=== PATIENT | male | born 1955 | race Caucasian/White ===

== ENCOUNTER 2018-12-27 06:45 | Day surgery (SDC) | payer BC, SELFPAY ==
[2018-12-27] VITALS (7 sets, daily range): BP systolic 130–160; BP diastolic 79–94; PULSE 63–78; RESP 12–16; TEMP 36.4–36.6; O2SAT 94–98
[2018-12-27] MEDS: Lactated Ringers 1,000 ML 80 ML IV (07:05)
--- NOTE | 2018-12-27 07:16 | W.PM.HP.N ---
Date of service: 12/27/18 Time of Service: 07:16 Assessment and Plan (1) Left inguinal hernia: Current visit: No Status: Acute A\\ left inguinal hernia P\\ Left inguinal hernia repair with mesh Risks, benefits and complications have been reviewed. Complications include but are not limited to bleeding, infection, injury to vas, vessels and nerves, injury to bowel and adverse reaction to medications. Questions were entertained and answered to their satisfaction and they wished to proceed. History of Present Illness Narrative: Mr. Jackson is a pleasant 63 year old male who is here today because he has a left inguinal hernia that he noticed about 3-4 months ago. He has mild discomfort with activity. 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 He denies any N/V or changes in his bowel habits. He thinks he had a hernia repaired about 5-6 years ago in [place]. Not sure which side. I don't see that in his PMHx. He denies any chest pain or SOB. He is an active ayan. He was given a Rx for a chest rash. The antibiotics are helping to clear it up. No changes in his health since he was seen in the office Review of Systems Constitutional Denies fever(s) Cardiovascular Denies chest pain, Denies chest pain at rest, Denies dyspnea and Denies dyspnea on exertion Respiratory Denies cough, Denies dyspnea and Denies dyspnea on exertion Gastrointestinal Reports as per [facility] Medical History (Updated 12/27/18 @ 07:18 by Ana López MD) Depression (Chronic) Essential hypertension (Acute) Hiatal hernia (Inactive) History of alcoholism (Acute) Hyperlipidemia (Acute) Induratio penis plastica (Inactive) w/ E.D. Internal hemorrhoids (Inactive 10/17/14) Left inguinal hernia (Acute) Umbilical hernia (Acute) Surgical History Appendectomy Colonoscopy - [facility] 1999 2004 Vasectomy Family History Mother Personal history of malignant neoplasm brain Father Essential hypertension Personal history of malignant neoplasm melanoma Sister Essential hypertension Grandfather Diabetes Grandfather Alcohol abuse Neoplasm Grandmother Stroke Grandmother No problems noted. Sister Depression Daughter Asthma Daughter No problems noted. 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 Do you feel safe at home: Yes Do you feel safe in your relationship?: Yes Meds Home Medications Medication Instructions Recorded Confirmed Type albuterol sulfate [Proair Hfa] 2 puff INHALATION Q4H PRN #2 02/01/17 12/22/18 Rx inhaler tadalafil [Cialis] 10 - 20 mg PO DAILY PRN #10 tab-cap 09/01/17 12/27/18 History losartan 100 1 tab PO DAILY #90 tab-cap 03/28/18 12/27/18 Rx mg-hydrochlorothiazide 25 mg tablet amlodipine 5 mg tablet 5 mg PO DAILY #90 tab-cap 07/11/18 12/27/18 Rx atorvastatin 20 mg tablet 20 mg PO DAILY #90 tab-cap 07/11/18 12/27/18 Rx budesonide-formoterol HFA 160 2 puff INHALATION BID #2 inhaler 09/21/18 12/22/18 Rx mcg-4.5 mcg/actuation aerosol inhaler escitalopram oxalate 20 mg tablet 20 mg PO DAILY #90 tab-cap 09/27/18 12/27/18 Rx Allergies Allergy/AdvReac Type Severity Reaction Status Date / Time No Known Drug Allergies Allergy Verified 12/22/18 12:07 Exam Const General: cooperative and comfortable Orientation: alert and oriented x3 HENMT Head: normal to inspection, normocephalic and atraumatic Resp Effort & Inspection: normal respiratory effort Auscultation: clear to auscultation bilaterally Cardio Rate: regular rate Rhythm: regular rhythm Heart Sounds: no gallops, no murmurs and no rubs GI Inspection: normal to inspection Palpation: soft, no hepatosplenomegaly and hernia (left inguinal hernia) Results Last Vital Signs Temp 97.9 F 12/27/18 06:52 Pulse 63 12/27/18 06:52 Resp 16 12/27/18 06:52 BP 160/90 H 12/27/18 06:52 Pulse Ox 98 12/27/18 06:52
--- NOTE | 2018-12-27 07:19 | ROE_ITS ---
Date of service: 12/27/18 Time of Service: 08:52 Operative Note DATE OF PROCEDURE: 12/27/18 PRE-OP DIAGNOSIS: left inguinal hernia POST-OP DIAGNOSIS: same (direct and indirect) PROCEDURE: left inguinal hernia repair with mesh SURGEON: Ana López DIE CASTING MACHINE MAINTAINER: Juli Weber ANESTHESIA: GETA and regional (Left TAP block) ESTIMATED BLOOD LOSS: 10 PATHOLOGY: none sent COMPLICATIONS: None Patient was transported to: PACU Patient's condition: stable Implants: Bard mesh Perfix Plug XL REF [id number] LOT [id number] Indications: Mr. Jackson is a pleasant 63 year old male seen in the office for a bothersome left inguinal hernia. Risks, benefits and complications were reviewed with him and he wished to proceed. No guarantees were given or implied. Findings: Large indirect and direct hernia Cord lipoma Procedure Description: After informed concent was obtained the patient was taken to the operating room and placed in a supine position. Monitors and SCDs were applied and a timeout was done. The patient's name, date of , proc edure type, procedure site, allergies to medications, preoperative antibiotic, and DVT prophylaxis were all reviewed. Fire risk was assessed. Next anesthesia did a tap block on the left side under ultrasound guidance. Please see their separate dictation. Once anesthesia was done the abdomen was clipped of hair in the left lower quadrant, prepped and draped in a sterile surgical fashion. 1% lidocaine was injected into the dermis in the left lower quadrant. An incision was made with a 10 blade in the left lower quadrant. Dissection was done with cautery through the subcutaneous tissues and Su's fascia down to the external oblique fascia. The external ring was identified and the external oblique fascia was opened sharply through the external ring. The cut fascia was grasped with hemostats. The cord structures were identified and a [place] drain was placed around them. The cremasteric muscle was dissected away from the cord structures using both cautery and blunt dissection. The branch of the ilioinguinal nerve was cut. A hernia sac was identified and removed from the cord structures using blunt dissection. The hernia sac was opened. No bowel was identified. The sac was then suture ligated and amputated. The remnant was pushed back into the peritoneum. A XL plug was placed into the internal ring and secured with 2-0 proline. The flat piece of mesh was then attached to the arcuate ligament using a 2-0 Prolene double armed suture. The mesh was secured laterally and medially with a 2-0 Prolene, with a running suture. The tails of the mesh were wrapped a round the cord structures effectively cinching down the internal ring. Once the mesh was secured the tissues were irrigated with some normal saline. No bleeding was identified. The external oblique fascia was re-approximated using 2-0 Vicryl running suture. The Su's fascia was re-approximated using interrupted 3-0 Vicryl. The dermis was re-approximated with a running 4-0 Vicryl. The skin was cleaned and dried and skin affix was applied. The patient was woken up and taken back to recovery in stable condition. There were no immediate complications. Sponge, instrument and needle counts were correct at the end of the case x2.
--- NOTE | 2018-12-27 07:21 | W.PM.DSUDISC ---
Discharge Plan Disposition Patient Disposition: HOME Condition: Good Discharge Details Reason For Visit: left inguinal hernia Attending Provider: Ana López Primary Care Provider: Darion Benson Home Meds and New Rx's Prescriptions: New acetaminophen [Tylenol] 325 mg tablet 650 mg PO Q6H PRN (Reason: pain) Qty: 30 RF: 0 ibuprofen 600 mg tablet 600 mg PO Q6H PRN (Reason: pain) Qty: 30 RF: 0 oxycodone 5 mg tablet 5 mg PO Q6H PRN (Reason: pain) Qty: 14 RF: 0 Continued albuterol sulfate [ProAir HFA] 8.5 GM HFA aerosol inhaler 2 puff Inhalation Q4H PRN Qty: 2 RF: 6 tadalafil [Cialis] 20 MG tablet 10 - 20 mg PO DAILY PRNQty: 10 RF: 3 losartan-hydrochlorothiazide [Hyzaar] 100-25 mg tablet 1 tab PO DAILY Qty: 90 RF: 3 amlodipine 5 mg tablet 5 mg PO DAILY Qty: 90 RF: 4 atorvastatin [Lipitor] 20 mg tablet 20 mg PO DAILY Qty: 90 RF: 4 Symbicort 160-4.5 mcg/actuation HFA aerosol inhaler 2 puff Inhalation BID Qty: 2 RF: 12 escitalopram oxalate [Lexapro] 20 mg tablet 20 mg PO DAILY Qty: 90 RF: 1 Discharge Instructions Instructions: Inguinal Hernia Repair (GEN) Additional Instructions: Activity at Home after surgery: 1. Make sure you walk outside at least 4 times per day 2. You should be able to climb a flight of stairs 3. No driving while in pain or taking pain medications 4. No strenuous activity or heavy lifting for 6 weeks Diet, Nutrition, & wound healin. Avoid alcohol until after you are recovered from your surgery 2. Make sure to eat plenty of lean protein (meat, fish, eggs, cottage cheese, beans) 3. Eat a variety of fruits and vegetables. Eat plenty of high fiber foods to avoid constipation. 4. Drink plenty of liquids to stay hydrated and avoid constipation Pain Medications: 1. Alternate Tylenol 650 mg and Ibuprofen 600 mg every 3 hours 2. If a narcotic has been prescribed take as directed only for breakthrough pain For Constipation: 1. Take Milk of Magnesia or MiraLax as needed for constipation Other: 1. You may shower daily. Do not scrub the incisions 2. Do not soak the incisions for 1 week 3. You may alternate ice and heat as needed for pain and swelling Wound Care: 1. Keep the incisions clean and dry Please call our office if you develop: 1. Fevers >101.5 2. Nausea or Vomiting 3. Worsening pain 4. Redness and thick discharge from the wounds If after hours please call the Hospital at and ask to speak to the on-call surgeon Activity:: Activity as Tolerated Diet:: As Tolerated Discharge Orders Discharge Orders: Discharge Order (Routine); Ordered 12/27/18 Ordered By: Ana López DS: Diagnosis Discharge Diagnosis (1) Left inguinal hernia: Status: Acute
[2018-12-27] MEDS: ceFAZolin 2 GM/50 ML BAG IVPB (07:28)
[2018-12-27] MEDS: Bupivacaine 0.25% Pres-Free 30 ML VIAL (07:40)
[2018-12-27] MEDS: Lidocaine 1% Multi-Dose 50 ML VIAL (08:00)
== END 2018-12-27 10:45 | disposition home or self-care (01) ==
PROVIDERS: PCP Emergency Medicine; Visit Provider Surgery
PROC: (CPT 49505; principal; 2018-12-27 07:30)
DX: K40.90 Unilateral inguinal hernia, without obstruction or gangrene, not specified as recurrent (principal); G89.18 Other acute postprocedural pain; I10 Essential (primary) hypertension; F32.9 Major depressive disorder, single episode, unspecified
CPT/HCPCS: 49505; 76942; NC; C1781; J0690; J1100; J1885; J2250; J2405; J3010

== ENCOUNTER 2019-06-14 08:02 | Outpatient (CLI) | payer BC, SELFPAY ==
[2019-06-14 08:31] LABS: HCT 40.8 % (40.0-50.0); Mean Corp. HGB Concentration 34.3 g/dL (32.0-36.0); Mean Corpuscular Volume 87.6 fL (80-95); Platelet Count 234 x1000/uL (130-400); RBC 4.66 m/cumm (4.50-6.00); RBC Distribution Width 13.4 % (11.8-14.1); White Blood Cell Count 5.21 k/cumm (4.4-10.8)
[2019-06-14 09:18] LABS: ALT 31 U/L (16-63); AST 23 U/L (15-37); Albumin 3.9 g/dL (3.4-5.0); Alkaline Phosphatase 69 U/L (46-116); Anion Gap 7.8 mmol/L (3-11); BUN 20 mg/dL (7-18); Bilirubin, Total 0.9 mg/dL (0.2-1.0); CO2 31.2 mmol/L (21.0-32.0); CREATININE 0.98 mg/dL (0.70-1.30); Calculated LDL 98 mg/dL (<100); Chloride 100 mmol/L (98-107); Cholesterol 187 mg/dL (<200); Glucose 84 mg/dL (74-106); HDL Cholesterol 65 mg/dL (40-60); Potassium 3.8 mmol/L (3.5-5.1); Sodium 139 mmol/L (136-145); Total Protein 7.1 g/dL (6.4-8.2); Triglyceride 120 mg/dL (<150)
[2019-06-15 10:05] LABS: PSA, Screening 1.9 ng/mL (0.0-4.5)
== END 2019-06-14 08:22 ==
PROVIDERS: PCP Emergency Medicine; Visit Provider Family Medicine
DX: Z00.00 Encounter for general adult medical examination without abnormal findings (principal); I10 Essential (primary) hypertension; Z80.0 Family history of malignant neoplasm of digestive organs; Z12.5 Encounter for screening for malignant neoplasm of prostate
CPT/HCPCS: 36415; 80053; 80061; 84153; 85027

== ENCOUNTER 2019-10-26 07:30 | Outpatient (CLI) | payer BC, SELFPAY ==
[2019-10-26 19:28] LABS: COVID-19 RT-PCR UVMMC Result Negative (Negative)
== END 2019-10-26 07:50 ==
PROVIDERS: PCP Emergency Medicine; Visit Provider Surgery
DX: Z01.818 Encounter for other preprocedural examination (principal); Z11.59 Encounter for screening for other viral diseases
CPT/HCPCS: U0003

== ENCOUNTER 2019-10-29 08:09 | Day surgery (SDC) | payer BC, SELFPAY ==
--- NOTE | 2019-10-29 06:41 | W.COLOREPORT ---
Date of service: 10/29/19 Time of Service: 09:14 Colonoscopy Report Date of procedure: 10/29/19 Pre-op diagnosis general: colon cancer screening and family history of colon cancer Post-op diagnosis procedure note: same Procedure: Colonoscopy Surgeon: Ana López Anesthesia proc note operative: other (general/ ASA 2/Liliana Donnelly CRNA ) Estimated blood loss (mL): 0 Pathology: none sent Complications: None Disposition: no change Indications: Family history of colon cancer in mother: Encounter for colorectal cancer screenin63 year old male with a family history of colon cancer and a personal history of polyps who is here today to discuss a colonoscopy. He is having no GI complaints Recommended Colonoscopy under sedation Risks, benefits and complications have been reviewed. Complications include but are not limited to bleeding, pain, perforation, missed small lesion/polyp, sore throat, aspiration and adverse reaction to the medications. Questions were entertained and answered to their satisfaction and they wished to proceed. No guarantees were given or implied Prep: Miralax/Dulcolax Procedure Start Time: :14 Procedure End Time: :35 Retraction Time: 15 minutes Findings: Normal colon Procedure Description: After informed consent was obtained the patient was taken to the procedure room and placed in a left decubitous position. Monitors were applied and a time out was done. The patients name, date of , procedure, allergies to medications and metal in their body was reviewed. The patient was then sedated. Once sedated and comfortable a rectal exam was done. External exam was normal. Internal exam revealed a normal sphincter tone and no palpable masses. Prostate felt smooth. The scope was then introduced and retro-flexed. No internal hemorrhoids, masses or polyps were identified on retro-flexion. The scope was then advanced to the cecum without difficulty. The ileocecal valve and appendiceal orifice were identified. The prep was adequate. There was some stool scattered throughout that was washed off the maxwell. The scope was then slowly retracted over 15 minutes back into the rectum. There were no polyps and no diverticula. The scope was removed and the patient was woken up and taken back to Same day surgery in stable condition. The patient tolerated the procedure well and there were no immediate complications. Follow up: The patient should follow up in 5 years unless they develop changes in bowel habits or other new gastrointestinal complaints.
--- NOTE | 2019-10-29 06:43 | W.PM.DSUDISC ---
Discharge Plan Disposition Patient Disposition: HOME Condition: Good Discharge Details Reason For Visit: Colon Cancer Screening and Family History Attending Provider: Ana López Primary Care Provider: Darion Benson Home Meds and New Rx's Prescriptions: Continued amlodipine 10 mg tablet 10 mg PO DAILY Qty: 90 RF: 3 Zyrtec 10 mg capsule 10 mg PO DAILY RF: 0 albuterol sulfate [ProAir HFA] 8.5 GM HFA aerosol inhaler 2 puff Inhalation Q4H PRN Qty: 2 RF: 6 tadalafil [Cialis] 20 MG tablet 10 - 20 mg PO DAILY PRNQty: 10 RF: 3 losartan-hydrochlorothiazide [Hyzaar] 100-25 mg tablet 1 tab PO DAILY Qty: 90 RF: 3 atorvastatin [Lipitor] 20 mg tablet 20 mg PO DAILY Qty: 90 RF: 4 budesonide-formoterol [Symbicort] 160-4.5 mcg/actuation HFA aerosol inhaler 2 puff Inhalation BID Qty: 2 RF: 12 escitalopram oxalate [Lexapro] 20 mg tablet 20 mg PO DAILY Qty: 90 RF: 3 Discontinued polyethylene glycol 3350 17 gram/dose powder 238 g PO ONCE Qty: 238 RF: 0 bisacodyl [Dulcolax (bisacodyl)] 5 mg tablet,delayed release (DR/EC) 5 mg PO ONCE Qty: 4 RF: 0 Discharge Instructions Additional Instructions: Findings: Normal colonoscopy Follow up: 5 years Please call if you develop: fevers >101.5 Nausea or Vomiting Abdominal pain that is not transient DAY SURGERY UNIT POST ENDOSCOPY INSTRUCTIONS 1. Because there will be medication in your system for the next 24 hours, you may feel a little sleepy. Your coordination will be affected. Therefore: a. Do not drive or operate dangerous equipment for 24 hours. b. Do not drink alcohol beverages for 24 hours (not even beer). c. Plan to go home and rest for the day. 2. Generally there are no restrictions on your activity after a day or so has gone by, but you may feel a bit fatigued for a few days. 3 After you arrive home you may have a light meal and return to a normal diet as you can tolerate it without feeling sick to your stomach. 4. After surgery, you may feel pain or discomfort. This should be only transient, but if it persists please contact your doctor. 5. If there are any questions regarding the findings of your procedure, please feel free to contact your doctor. 6. If you are unable to contact your doctor with a problem, contact the hospital at [phone]. 7. Continue all your regular medications unless directed otherwise. I understand the above instructions and have no questions. Signature of Patient or Responsible Adult Escort Date/Time Name of Responsible Adult Escort Signature of Nurse Date/Time Activity:: Activity as Tolerated Diet:: As Tolerated Discharge Orders Discharge Orders: Discharge Order (Routine); Ordered 10/29/19 Ordered By: Ana López
[2019-10-29 08:15] VITALS: BP 128/79; PULSE 82; RESP 18; TEMP 36.2; O2SAT 99
[2019-10-29] MEDS: Lactated Ringers 1,000 ML 80 ML IV (08:45)
[2019-10-29 10:20] VITALS: BP 134/83; PULSE 66; RESP 16; TEMP 36.1; O2SAT 100
== END 2019-10-29 10:37 | disposition home or self-care (01) ==
LOC: SUR 08:09
PROVIDERS: PCP Emergency Medicine; Visit Provider Surgery
PROC: 0DJD8ZZ Inspection of Lower Intestinal Tract, Via Natural or Artificial Opening Endoscopic (ICD-10-PCS; CPT 45378; principal; 2019-10-29 09:30)
DX: Z12.11 Encounter for screening for malignant neoplasm of colon (principal); Z80.0 Family history of malignant neoplasm of digestive organs; Z86.010 Personal history of colon polyps; J45.909 Unspecified asthma, uncomplicated
CPT/HCPCS: 45378

== ENCOUNTER 2021-03-27 01:25 | Outpatient (CLI) | payer BC, SELFPAY ==
--- NOTE | 2021-03-27 07:00 | DI.RAD_ITS ---
Exam(s) XR KNEE RT 3V AP,LAT,OSVALDO EXAM: XR KNEE RT 3V AP,LAT,OSVALDO CLINICAL HISTORY: knee injury, twisting and stress 1 yr ago, medial,m25.561. TECHNIQUE: 2D digital imaging was performed of the right knee. Three views obtained. AP, lateral an d PA tunnel views were obtained. COMPARISON: No previous for comparison. FINDINGS: BONES: No acute fracture is present. No bony destructive lesion is seen. JOINTS: There is mild narrowing and periarticular spurring in the medial femoral tibial joint. No krystal int effusion is seen. SOFT TISSUE: Normal. IMPRESSION: Mild degenerative changes of the right knee. DATA REPOSITORY: RADIATION DOSE DELIVERED:
== END 2021-03-27 01:45 ==
PROVIDERS: PCP Emergency Medicine; Visit Provider Emergency Medicine
DX: M25.561 Pain in right knee (principal); M17.11 Unilateral primary osteoarthritis, right knee
CPT/HCPCS: 73562

== ENCOUNTER 2022-09-13 02:18 | Outpatient (CLI) | payer BC, SELFPAY ==
[2022-09-13 13:58] LABS: CREATININE 1.2 mg/dL (0.70-1.30); Potassium 3.8 mmol/L (3.5-5.1)
== END 2022-09-13 02:19 | disposition home or self-care (01) ==
LOC: LBO 02:19
PROVIDERS: PCP Nurse Practitioner Family; Visit Provider Nurse Practitioner Family
DX: I10 Essential (primary) hypertension (principal)
CPT/HCPCS: 36415; 82565; 84132

== ENCOUNTER 2023-08-09 04:02 | Outpatient (CLI) | payer BC, SELFPAY ==
[2023-08-09 13:02] LABS: Calculated LDL 90 mg/dL (<100); Cholesterol 197 mg/dL (<200); HDL Cholesterol 89 mg/dL (40-60); Triglyceride 94 mg/dL (<150)
== END 2023-08-09 04:03 | disposition home or self-care (01) ==
LOC: LOS 04:02
PROVIDERS: PCP Nurse Practitioner Family; Visit Provider Nurse Practitioner Family
DX: E78.5 Hyperlipidemia, unspecified (principal)
CPT/HCPCS: 36415; 80061

== ENCOUNTER 2024-06-04 08:35 | Outpatient (CLI) | payer BC, SELFPAY ==
[2024-06-04 13:03] LABS: Calculated LDL 95 mg/dL (<100); Cholesterol 173 mg/dL (<200); HDL Cholesterol 61 mg/dL (40-60); Triglyceride 87 mg/dL (<150)
[2024-06-04 14:07] LABS: Hemoglobin A1C 5.7 % (<5.7)
[2024-06-04 19:48] LABS: PSA, Screening 0.5 ng/mL (<=4.5)
== END 2024-06-04 08:36 | disposition home or self-care (01) ==
LOC: LOS 08:35
PROVIDERS: PCP Nurse Practitioner Family; Visit Provider Nurse Practitioner Family
DX: Z12.5 Encounter for screening for malignant neoplasm of prostate (principal); Z13.220 Encounter for screening for lipoid disorders; Z13.1 Encounter for screening for diabetes mellitus
CPT/HCPCS: 36415; 80061; 84153; 83036

== ENCOUNTER 2024-06-20 09:36 | Outpatient (CLI) | payer BC, SELFPAY ==
[2024-06-21 10:22] LABS: Lyme Ab w Rflx to Lyme Confirm Negative (Negative)
[2024-06-23 15:57] LABS: Anaplasma phagocytophilum Negative (Negative); B. miyamotoi PCR Negative (Negative); Babesia divergens/MO-1 Negative (Negative); Babesia duncani Negative (Negative); Babesia microti Negative (Negative); Ehrlichia chaffeensis Negative (Negative); Ehrlichia ewingii/canis Negative (Negative); Ehrlichia muris eauclairensis Negative (Negative)
== END 2024-06-20 09:37 | disposition home or self-care (01) ==
LOC: LOS 09:36
PROVIDERS: PCP Nurse Practitioner Family; Visit Provider Nurse Practitioner Family
DX: W57.XXXA Bitten or stung by nonvenomous insect and other nonvenomous arthropods, initial encounter (principal); R07.9 Chest pain, unspecified; R06.02 Shortness of breath
CPT/HCPCS: 36415; 87798; 86618

== ENCOUNTER 2024-07-10 00:47 | Outpatient (CLI) | payer BC, SELFPAY ==
--- NOTE | 2024-07-10 06:00 | DI.US_ITS ---
APPROVED REPORT EXAM: Comprehensive 2D, Doppler, and color-flow Echocardiogram Patient Location: Out-Patient Candy Maker Helper: Olga Stoner RT (R) (CT) [facility] Rhythm: NSR Indications: Chest pain, SOB on exertion. Other Information Study Quality: Good Conclusion Mild concentric left ventricular hypertrophy. Ejection fraction is 65 to 70%. Wall motion is normal Normal right ventricular size and function Both atria are normal in size Aortic valve is mildly thickened and trileaflet with trace regurgitation Normal mitral valve with trace regurgitation Estimated right ventricular systolic pressure is 27 mmHg Wall motion Left Ventricle The left ventricle is normal size. The left ventricular systolic function is normal. The left ventric ular ejection fraction is within the normal range. Mild concentric left ventricular hypertrophy. Wall motion scoring is all normal. The left ventricular diastolic function is normal. There is no ventric ular septal defect visualized. LVEF is 65-70%. Right Ventricle The right ventricle is normal size. The right ventricular systolic function is normal. There is say l right ventricular wall thickness. Moderator band is seen in the right ventricle. Atria The left atrium size is normal. The right atrium size is normal. The interatrial septum is intact wit h no evidence for an atrial septal defect. Aortic Valve Aortic valve is trileaflet. Aortic valve leaflets are mildly thickened. There is no aortic valvular s tenosis. Trace aortic regurgitation. Mitral Valve The mitral valve is normal in structure. No evidence of mitral valve stenosis. Trace mitral regurgita tion. Tricuspid Valve The tricuspid valve is normal in structure. There is no tricuspid valve stenosis. Trivial to mild tri cuspid regurgitation. The RVSP is 27 mmHg. Pulmonic Valve The pulmonary valve is normal in structure. There is no pulmonic valvular stenosis. Trace pulmonic re gurgitation. Great Vessels The aortic root is normal in size. The pulmonary artery is normal. The ascending aorta is normal in s ize. IVC is normal in size and collapses >50% with inspiration. Pericardium There is no pericardial effusion. 2D Dimensions IVSD d PLAX 1.32 cm M: 0.6-1.2 Ao Root d 2.94 cm M: 3.1 - 3.7 LVPW d PLAX 1.20 cm M: 0.6 - 1.2 Ao Asc Diam d 3.46 cm M: 2.6 - 3.4 LVID d PLAX 4.45 cm M: 4.2 - 5.8 Prox Ao Arch 3.4 cm LVDs 2.61 cm M: 2.5 - 4.0 RVID Mid Diam 4.15 cm LV EF Teichholz 72.5 % RVID Base Diam (A4C) 3.93 cm (M/F) 2.5-4.1 FS 41.38 % IVC Diam exp d SLAX 1.8 cm LV EDV (Teich) 89.9 mL LV ESV (Teich) 24.8 mL M-Mode TAPSE 2.92 cm (M/F) >1.7 Auto EF LV EDV A4C LV EDV A2C LV EDV BP 116.5 mL LV ESV A4C LV ESV A2C LV ESV BP 47.5 mL LVEF(%) A4C LVEF(%) A2C LVEF(%) BP 59.2 % LV SV A4C LV SV A2C LV SV BP 69.0 ml LV CO A4C LV CO A2C LV CO BP 3.7 L/min LV Volumes - Method of Disks (Sherman's) Single Plane 2D LV Volumes Biplane 2D LV Volumes LV EDV A4C 103.0 mL LV EDV BP 93.52 mL M: 62 - 150 LV ESV A4C 36.7 mL LV ESV BP 28.2 mL LVEF(%) A4C 64.4 % LVEF(%) BP 69.90 % M: 52 - 72 LV EDV A2C 81.5 mL LV EDV BP Index 42.50 mL/m2 M: 34 - 74 LV ESV A2C 20.8 mL SV BP LVEF(%) A2C 74.5 % SV Index LV Strain Long Pk Overal Avg (s) 19.78 RV Strain Global Peak Long. Strain A4C 23.55 Global Peak Long. Strain A4C FW 31.15 LA Volume LA Length A4C 5.3 cm LA Length A2C 5.7 cm LA Area A4C s 14.14 cm2 LA Area A2C s 17.59 cm2 LA Vol A4C A-L 32.25 mL LA Vol A2C A-L 46.04 mL LA Vol Biplane A-L 40.1 mL LA Vol/BSA A4C A-L LA Vol/BSA A2C A-L LA Vol/BSA BP A-L 18.2 mL/m2 LA Vol A4C MOD 31.0 mL LA Vol A2C MOD 44.6 mL LA Vol BP MOD 38.0 mL LV Diastology MV E' medial 0.083 (>0.07 m/s) MV E Vmax 0.81 (0.4-1.3 m/s) MV E/E' MED 9.73 (<14) MV A Vmax 0.75 (0.4-1.3 m/s) MV E' lateral 0.125 (>0.1 m/s) E/A Ratio 1.1 MV E/E' LAT 6.47 (<14) MV E' Average 0.104 m/s MV E/E'(average) 7.77 Aortic Valve LVOT Vmax 1.09 m/s LVOT Peak Grad 4.8 mmHg LVOT VTI 0.262 m LVOT Mean Grad 2.2 mmHg LVOT SV 114.88 mL LVOT Diam s 2.35 cm Mitral Valve MV DT 253 (160-240 msec) Pulm Vein s 0.57 m/s Pulm Vein d 0.52 m/s Pulm Vein a 0.31 m/s Pulmonary Valve RVOT Vmax 0.66 m/s RVOT Peak Gr. 1.7 mmHg RVOT VTI 0.155 m RVOT Mean Gr. 1.0 mmHg [place] ED Velocity 0.92 m/s [place] Grad 3.4 mmHg Tricuspid Valve RA Pressure 3.00 mmHg TR Vmax 2.45 m/s TV S' 0.14 m/s TR Peak Grad 23.9 mmHg RVSP (TR) 27.0 mmHg
== END 2024-07-10 01:07 ==
LOC: DI 00:47
PROVIDERS: PCP Nurse Practitioner Family; Visit Provider Internal Medicine Cardiovascular Disease
DX: R07.9 Chest pain, unspecified (principal); I51.7 Cardiomegaly
CPT/HCPCS: 93306

== ENCOUNTER 2024-11-19 08:19 | Day surgery (SDC) | payer BC, SELFPAY ==
--- NOTE | 2024-11-18 18:54 | W.PM.DSUDISC ---
Date of service: 11/19/24 Discharge Plan Disposition Patient Disposition: Home Condition: Good Discharge Details Reason For Visit: screening colonoscopy Attending Provider: Dave Rae Primary Care Provider: Mohinder Aranda Home Meds and New Rx's Prescriptions: Continued albuterol sulfate 90 mcg/actuation HFA aerosol inhaler 2 puff Inhalation Q4H PRN Qty: 2 6RF Patient Comments: couple of months amlodipine 10 mg tablet 10 mg PO DAILY Qty: 90 3RF atorvastatin [Lipitor] 20 mg tablet 20 mg PO DAILY Qty: 90 3RF Qvar RediHaler 40 mcg/actuation HFA aerosol breath activated 2 inh inhalation BID Qty: 10.6 11RF Patient Comments: pt. states he took a couple months losartan-hydrochlorothiazide 100-25 mg tablet See Rx Instructions .ROUTE .COMPLEX Qty: 90 3RF Dose Instruction: TAKE ONE TABLET BY MOUTH EVERY DAY Rx Instructions: TAKE ONE TABLET BY MOUTH EVERY DAY tadalafil [Cialis] 20 mg tablet 20 mg PO DAILY PRN (Reason: sexual activity) Qty: 10 3RF escitalopram oxalate [Lexapro] 20 mg tablet 20 mg PO DAILY Qty: 90 3RF albuterol sulfate 2.5 mg /3 mL (0.083 %) solution for nebulization 2.5 mg inhalation QID PRN (Reason: shortness of breath or wheezing) Qty: 75 0RF Discontinued bisacodyl [Dulcolax (bisacodyl)] 5 mg tablet,delayed release (DR/EC) 5 mg PO ONCE Qty: 4 0RF Rx Instructions: Take per colonoscopy instructions provided by ordering providers office polyethylene glycol 3350 17 gram/dose powder 17 g PO ONCE Qty: 238 0RF Rx Instructions: Take per colonoscopy instructions provided by ordering providers office No Action bisacodyl 5 mg tablet,delayed release (DR/EC) PO Patient Comments: TAKE TABLETS BY MOUTH ONCE PER COLONOSCOPY INSTRUCTIONS PROVIDED BY ORDERING PROVIDERS OFFICE polyethylene glycol 3350 17 gram/dose powder Patient Comments: TAKE BY MOUTH PER COLONOSCOPY INSTRUCTIONS PROVIDED BY ORDERING PROVIDERS OFFICE Discharge Instructions Instructions: Diverticulosis Additional Instructions: Stevenson, was very nice meeting you today, I hope you feel well after the procedure. Things went very smoothly. With regards to the need for colon cancer, the colonoscopy is negative. There are no tumors, polyps, or any other worrisome features. Incidentally, you do a little bit of diverticulosis. Diverticula are weak spots in the muscular layer of the colon wall. This causes the inside lining to pocket approach outwards. Despite conservative means diverticula, and having this called diverticulosis. Generally, I recommend that the patient to maintain a diet that is rich in fiber, stay well-hydrated, and avoid symptoms of constipation. Honestly, these are things at all but should be doing regardless of diverticulosis. I will attach some basic information here about typical approaches to diverticular management. If you need anything, have any questions at all, please do not hesitate to call or ask at any point. Otherwise, with your family history, recommend a 5-year screening interval for your next colonoscopy 1. If tolerated, consume a soft, low fiber diet for 1-2 days. 2[address] Do not drive, drink alcohol, operate machinery, make critical decisions, or do activities that require coordination or balance for 24 hours. 3. Because air was put into your colon during the procedure, expelling air from your rectum (passing gas or farting) is normal. 4. You may not have a bowel movement for 1-3 days because of the colonoscopy prep. This is normal. 5. Go directly to the emergency room if you notice any of the following: Develop chills (warm to touch), or if you have a thermometer and your temperature is above 101 Difficulty breathing or difficultly swallowing Persistent vomiting Severe abdominal pain, other than gas cramps Severe chest pain Black, tarry stools Any bleeding ? exceeding one tablespoon 6. Call your physician if the site where your intravenous was started becomes red, swollen, painful, and warm to touch. 7. Your physician has reviewed your pre-procedure medications. Please continue to take those medications as previously ordered. You will be given specific information/education regarding any changes to your medications before leaving. Activity:: Activity as Tolerated Diet:: As Tolerated Discharge Orders Discharge Orders: Discharge Order (Routine); Ordered 11/18/24 Ordered By: Dave Rae DS: Diagnosis Discharge Diagnosis (1) Encounter for screening colonoscopy: Status: Acute Asessment and Plan: Negative screening colonoscopy; based on family history 5-year screening
--- NOTE | 2024-11-18 18:57 | W.COLOREPORT ---
Date of service: 11/19/24 Time of Service: 11:20 Colonoscopy Report Date of procedure: 11/19/24 Pre-op diagnosis general: screening colonoscopy Post-op diagnosis procedure note: other (Diverticulosis; otherwise negative) Procedure: colonoscopy Surgeon: Dave Rae Anesthesia Type: General:No Airway Estimated blood loss (mL): 0 Pathology: none sent Complications: None Disposition: same day Indications: Stevenson is a 69 year old man with a family history of colon cancer who needs his next screening colonoscopy Prep: Miralax/Dulcolax Procedure Start Time: 10:54 Procedure End Time: 11:07 Retraction Time: 6 Findings: sigmoid diverticulosis Procedure Description: After the induction of anesthesia, and with Stevenson in left lateral decubitus position, I began by performing an external anorectal exam.? Perineum and skin were normal, as was the anal verge.? There was no evidence of external hemorrhoids.? Next, I performed a digital rectal exam.? I did not appreciate any abnormal findings.? Next, I advanced a colonoscope into the rectal vault.? I performed retroflexion.? This appeared normal.? Using irrigation, I then advanced the colonoscope beyond the rectal folds and into the sigmoid colon before advancing towards the cecum.? The quality of the prep was excellent.? The scope was noted to be in the cecum by identification of the ileocecal valve and appendiceal orifice.? I then began withdrawing the colonoscope using repeated irrigation as necessary for full evaluation of the colonic mucosa. ?There was some sigmoid diverticulosis. Once the scope was withdrawn to the level of the rectum, great care was taken to examine portions of the rectal folds.? Finally, the scope was withdrawn and the patient was brought to the same-day surgery recovery unit as the anesthetic wore off. ?The findings and instructions were shared with the patient prior to discharge. [place] Bowel Prep [place] Bowel Prep Right Colon: 3 Left Colon: 3 Transverse Colon: 3 Total Score: 9
[2024-11-19 08:44] VITALS: BP 118/69; PULSE 53; RESP 18; TEMP 36.5; O2SAT 98
[2024-11-19] MEDS: Lactated Ringers 1,000 ML 80 ML IV (09:02)
--- NOTE | 2024-11-19 10:34 | ANES.PREOP_ITS ---
General Info Date of Service Date Performed: 11/19/24 Height: 6 ft 3 in Weight: 94.3 kg Body Mass Index (BMI): 25.9 Surgical Procedure: Operation Date: 11/19/24 10:05 Proposed Procedure Side Surgeon amelia Rae MD Meds Allergies and Home Medications Allergies Allergy/AdvReac Type Severity Reaction Status Date / Time No Known Allergies Allergy Verified 11/19/24 08:41 Home Medication ?Medication ?Instructions ?Recorded albuterol sulfate 2.5 mg/3 mL 2.5 mg (3 mL) inhalation QID PRN 02/24/24 (0.083 %) solution for nebulization shortness of breat h or wheezing #75 mL escitalopram oxalate 20 mg tablet 20 mg PO DAILY #90 t ab-caps 02/24/24 (Lexapro) albuterol sulfate 90 mcg/actuation 2 puff inhalation Q 4H PRN ##2 05/16/24 aerosol inhaler amlodipine 10 mg tablet 10 mg PO DAILY #90 tabs 04/26 06/19 atorvastatin 20 mg tablet (Lipitor) 20 mg PO DAILY #90 tab-caps 05/16/24 beclomethasone dipropionate 40 2 inh inhalation BID #1 0.6 grams 05/16/24 mcg/actuation HFA breath activated aerosol (Qvar RediHaler) losartan 100 See Rx Instructions .Route 0 05/16/24 mg-hydrochlorothiazide 25 mg tablet .COMPLEX #90 tabs tadalafil 20 mg tablet (Cialis) 20 mg PO DAILY PRN sex ual activity 05/16/24 #10 tab-caps bisacodyl 5 mg tablet,delayed mg PO 11/19/24 release polyethylene glycol 3350 17 g 11/19/24 gram/dose oral powder Current Visit Medications: Current Medications Generic Name Dose Route Start Last Admin Trade Name Freq PRN Reason Stop Dose Admin Ringer's Solution 1,000 mls @ 80 mls/hr 11/19/24 06:00 11/19/24 09:02 IV 11/19/24 23:59 80 mls/hr INFUSION GUSTAVO Administration IV Miscellaneous Supplies 1 each 11/19/24 06:00 Iv Access IV 11/19/24 23:59 DIRECTED GUSTAVO Sodium Chloride 0 ml 11/19/24 06:00 Normal Saline Flush 10 Ml Syr IV 11/19/24 23:59 PRN PRN Sodium Chloride 0 ml 11/19/24 06:00 Normal Saline 10 Ml Vial IJ 11/19/24 23:59 DIRECTED PRN Sterile Water 0 ml 11/19/24 06:00 Water,Injection,Sterile 10 Ml Vial IJ 11/19/24 23:59 DIRECTED PRN PFSH Active Problems Active Problems: Problem Status Onset Code Encounter for screening colonoscopy Acute Z12.11 Allergy-induced asthma Acute J45.909 Induratio penis plastica Acute N48.6 Left inguinal hernia Acute K40.90 Hyperlipidemia Acute E78.5 History of alcoholism Acute F10.21 Hiatal hernia Acute K44.9 Essential hypertension Acute I10 Depression Chronic F32.9 Family history of colon cancer in mother Acute Z80.0 Medical History Medical History Chewing tobacco nicotine dependence Surgical History Surgical History H/O umbilical hernia repair S/P left inguinal hernia repair (~12/27/18) Vasectomy Colonoscopy - MAC (~10/29/19) 1999 2004 Appendectomy Tobacco Smoking/Tobacco Use Status: Current-Occasional Tobacco Type: smokeless tobacco Smokeless tobacco user: chewing tobacco Passive smoking exposure: Yes Second hand exposure: Yes Alcohol Alcohol Intake: former Substance Use Substance use: Never Substance use type: does not use Vital Signs and Lab Results Vital Signs Most Recent Vital Signs in EMR: Most Recent Vital Signs Temp Pulse Resp BP Pulse Ox 36.5 C 53 L 18 118/69 98 11/19/24 08:44 11/19/24 08:44 11/19/24 08:44 11/19/24 08:44 11/19/24 08:44 Imaging and Studies Imaging and Studies Study information below may be from another EMR and interpreted by another provider. Please see original notes in EMR for more complete details. Stress Test Summary: 10/17/13: RESULTS: 1) Chest pain - none. 2) Arrhythmia - rare single PVC?s. 3-beat run of supraventricular tachycardia in early recovery. Asymptomatic. 3) Heart rate/blood pressure response - normal. 5) Functional capacity - above average. Ambulated 12 minutes on Ten protocol. CONCLUSIONS: 1) Negative ischemia. Echocardiogram Summary: 07/10/24: Conclusion Mild concentric left ventricular hypertrophy. Ejection fraction is 65 to 70%. Wall motion is normal Normal right ventricular size and function Both atria are normal in size Aortic valve is mildly thickened and trileaflet with trace regurgitation Normal mitral valve with trace regurgitation Estimated right ventricular systolic pressure is 27 mmHg Anesthesia Assessment and Plan Anesthesia History Personal History: No History of Anesthesia Complications Family History: No Family History of Anesthesia Complications Exercise Tolerance Exercise Tolerance: Metabolic Equivalents>4 Pertinent Negatives Pertinent Negatives: No Symptoms of GERD, No Major Cardiovascular Symptoms or Complaints and No Major Pulmonary Symptoms or Complaints Cardiac & Pulmonary Exam Cardiac Exam: Normal S1/S2 Heart Sounds Pulmonary Exam: Clear Bilateral Breath Sounds Implantable Cardiac Device Does patient have a Pacemaker or an ICD?: No Airway Exam Known Difficult Airway: No Mallampati Class: 2 Mouth Opening: Normal (> 3cm) Thyromental Distance: Greater than 3 cm Neck Range of Motion: Full ROM Neck Circumference: Normal Teeth Condition: Normal Dentition ASA Classification ASA Score: ASA 2 Emergency Case?: No NPO Status NPO Status: NPO Clears >2 hours, Solids >8 hours Anesthesia Plan Resuscitation Status: Full Code Anesthesia Technique: General Anesthesia Airway Planned: Natural Airway Monitors Used: Standard Monitors
[2024-11-19 10:45] VITALS: BMI 25.9
[2024-11-19 11:16] VITALS: BP 103/69; PULSE 47; RESP 16; TEMP 36.2; O2SAT 97
--- NOTE | 2024-11-19 11:21 | W.ANESPOSTOP ---
Postoperative Evaluation Date, Time and Location Date Performed: 11/19/24 Time Performed: 11:18 Patient Location: Day Surgery Unit Vital Signs Most Recent Imported Vital Signs: Most Recent Vital Signs Temp Pulse Resp BP Pulse Ox 36.2 C L 47 L 16 103/69 97 11/19/24 11:16 11/19/24 11:16 11/19/24 11:16 11/19/24 11:16 11/19/24 11:16 Pain Score Most Recent Pain Score: Most Recent Pain Score Pain Level 0 11/19/24 11:16 Assessment Mental Status: Awake (Alert & Oriented to Patient Baseline) Airway and Respiratory Function: Patent airway with normal (patient baseline) respiratory exam Cardiovascular Function: Hemodynamically Stable Hydration Status: Adequately Hydrated Nausea & Vomiting: No Nausea or Vomiting Pain: Pt. Denies Any Pain Peripheral Nerve Block: Patient did not receive a nerve block
[2024-11-19 11:45] VITALS: BP 140/77; PULSE 46; RESP 16; TEMP 35.9; O2SAT 99
== END 2024-11-19 11:52 | disposition home or self-care (01) ==
LOC: SUR 08:20
PROVIDERS: PCP Nurse Practitioner Family; Visit Provider Surgery
PROC: 0DJD8ZZ Inspection of Lower Intestinal Tract, Via Natural or Artificial Opening Endoscopic (ICD-10-PCS; CPT 45378; principal; 2024-11-19 10:00)
DX: Z12.11 Encounter for screening for malignant neoplasm of colon (principal); K57.30 Diverticulosis of large intestine without perforation or abscess without bleeding
CPT/HCPCS: 45378; J2003; J2704